=== PATIENT | female | born 1985 | race Two or more races ===

== ENCOUNTER 2019-07-27 23:57 | Emergency (ER) | payer MEDICAID ==
[~2019-07-27] VITALS: Ht 162.6 cm; Wt 48.5 kg
[2019-07-28 00:05] VITALS: BP 143/93
[2019-07-28] MEDS ORDERED: LORAZEPAM INJ 2 MG/ML VIAL ONE (00:11)
[2019-07-28] MEDS ORDERED: LORAZEPAM INJ 2 MG/ML VIAL IM ONE (00:30)
--- NOTE | 2019-07-28 00:53 | NUR ---
Patient discharged to home in stable condition. Written and verbal after care instructions given. Patient verbalizes understanding of instruction.
== END 2019-07-28 01:07 | disposition home or self-care (01) ==
LOC: ER 07-28
DX: F41.9 Anxiety disorder, unspecified (principal)
CPT/HCPCS: 96372; 99283; J2060

== ENCOUNTER 2020-02-28 18:39 | Emergency (ER) | payer MEDICAID ==
[~2020-02-28] VITALS: Ht 144.8 cm; Wt 56.7 kg
--- NOTE | 2020-02-28 18:40 | NUR ---
PT BIB SELF C/O SOB STARTED 2 HRS AGO, PT IS AAOX4, NOT IN RESPIRATORY DISTRESS, V/S STABLE, KEPT RESTED AND COMFORTABLE, WILL CONTINUE TO MONITOR.
--- NOTE | 2020-02-28 18:50 | NUR ---
JOSHUA PROCTOR AT BEDSIDE FOR EVAL.
[2020-02-28] MEDS ORDERED: LORAZEPAM 1 MG TABLET ONE (18:54)
[2020-02-28] MEDS ORDERED: LORAZEPAM 1 MG TABLET PO ONE (19:00)
--- NOTE | 2020-02-28 19:02 | NUR ---
PIPELAYER AT BEDSIDE FOR XRAY.
--- NOTE | 2020-02-28 19:12 | NUR ---
COVID SWAB OBTAINED AND SENT TO LAB.
--- NOTE | 2020-02-28 19:50 | NUR ---
Patient discharged to home in stable condition. Written and verbal after care instructions given. Patient verbalizes understanding of instruction.
[2020-02-28 19:51] VITALS: BP 139/60
== END 2020-02-28 19:52 | disposition home or self-care (01) ==
LOC: ER 18:39
DX: B34.9 Viral infection, unspecified (principal); F41.9 Anxiety disorder, unspecified; R06.02 Shortness of breath; Z20.828 Contact with and (suspected) exposure to other viral communicable diseases; R03.0 Elevated blood-pressure reading, without diagnosis of hypertension
CPT/HCPCS: 71045; 99284; U0003

== ENCOUNTER 2020-08-09 16:29 | Emergency (ER) | payer MEDICAID ==
[~2020-08-09] VITALS: Ht 152.4 cm; Wt 52.6 kg
[2020-08-09 16:38] VITALS: BP 119/84
[2020-08-09] MEDS ORDERED: DEXAMETHASONE SOD PHOSPHATE 10 MG/ML VIAL ONE (16:58)
[2020-08-09] MEDS ORDERED: KETOROLAC TROMETHAMINE INJ 30 MG/ML VIAL ONE (16:58)
[2020-08-09] MEDS ORDERED: KETOROLAC TROMETHAMINE INJ 60 MG/2 ML VIAL IM ONE (17:00)
[2020-08-09] MEDS ORDERED: DEXAMETHASONE SOD PHOSPHATE 4 MG/ML VIAL IM ONE (17:00)
--- NOTE | 2020-08-09 17:12 | NUR ---
Patient a/ox4, ambulatory with steady gait. No distress noted. Patient discharged to home in stable condition. Written and verbal after care instructions given. Patient verbalizes understanding of instruction.
== END 2020-08-09 17:12 | disposition home or self-care (01) ==
LOC: ER 16:32
DX: J02.0 Streptococcal pharyngitis (principal); F41.9 Anxiety disorder, unspecified; R59.0 Localized enlarged lymph nodes
CPT/HCPCS: 96372 ×2; 99284; J1100; J1885

== ENCOUNTER 2021-05-12 16:54 | Emergency (ER) | payer MEDICAID ==
[~2021-05-12] VITALS: Ht 152.4 cm; Wt 51.7 kg
--- NOTE | 2021-05-12 17:10 | NUR ---
ANXIETY, PANIC ATTACK ONSET 2 HOURS AGO. PATIENT A/OX4, BREATHING EVEN AND UNLABORED, NOS OB NOTED. NEEDS ATTENDED.
[2021-05-12] MEDS ORDERED: LORAZEPAM 1 MG TABLET PO ONE (18:00)
[2021-05-12] MEDS ORDERED: LORAZEPAM 1 MG TABLET ONE (18:02)
[2021-05-12] MEDS ORDERED: ALPR0.5T PO ×2 (18:40→18:42)
--- NOTE | 2021-05-12 18:50 | NUR ---
PATIENT A/OX4, AMBULATORY WITH STEADY GAIT. BREATHING EVEN AND UNLABORED, NO SOB NOTED. Patient discharged to home in stable condition. Written and verbal after care instructions given. Patient verbalizes understanding of instruction.
[2021-05-12 18:51] VITALS: BP 110/50
== END 2021-05-12 18:52 | disposition home or self-care (01) ==
LOC: ER 16:54
DX: F41.9 Anxiety disorder, unspecified (principal); Z79.899 Other long term (current) drug therapy

== ENCOUNTER 2021-12-06 17:45 | Emergency (ER) | payer MEDICAID ==
[~2021-12-06] VITALS: Ht 152.4 cm; Wt 51.7 kg
[~2021-12-06 17:45] MED LIST: ALPR0.5T PO
--- NOTE | 2021-12-06 18:09 | NUR ---
DR HOFFMAN AT BEDSIDE
[2021-12-06] MEDS ORDERED: KETOROLAC TROMETHAMINE INJ 30 MG/ML VIAL ONE (18:17)
[2021-12-06] MEDS ORDERED: METOCLOPRAMIDE HCL 10 MG/2 ML VIAL ONE (18:17)
[2021-12-06] MEDS ORDERED: SUMATRIPTAN SUCCINATE 6 MG/0.5 ML VIAL SQ ONE ×2 (18:17→18:30)
[2021-12-06] MEDS ORDERED: KETOROLAC TROMETHAMINE INJ 30 MG/ML VIAL IV ONE (18:30)
[2021-12-06] MEDS ORDERED: METOCLOPRAMIDE HCL 10 MG/2 ML VIAL IV ONE (18:30)
[2021-12-06] MEDS ORDERED: IV NS 0.9% 1,000 ML BAG IV ONE (18:30)
--- NOTE | 2021-12-06 18:32 | NUR ---
SIGNED WAIVER FORM. LMP 12/04/21.
[2021-12-06] MEDS ORDERED: IBUP-1957 PO (19:14)
[2021-12-06] MEDS ORDERED: SUMA100T PO (19:14)
--- NOTE | 2021-12-06 19:15 | NUR ---
REPORT GIVEN TO WONG GAN FOR JOE
[2021-12-06 19:17] VITALS: BP 117/72
--- NOTE | 2021-12-06 19:17 | NUR ---
IV removed. Catheter intact and site benign. Pressure and 4x4 applied to site. No bleeding noted. Patient discharged to home in stable condition. Written and verbal after care instructions given. Patient verbalizes understanding of instruction.
== END 2021-12-06 19:18 | disposition home or self-care (01) ==
LOC: ER 17:47
DX: G43.909 Migraine, unspecified, not intractable, without status migrainosus (principal); F41.9 Anxiety disorder, unspecified; Z79.899 Other long term (current) drug therapy
CPT/HCPCS: 96361; 96372; 96374; 96375; 99284; J1885; J2765; J3030; J7030 ×2

== ENCOUNTER 2024-04-24 07:38 | Inpatient (IN) | payer MEDICAID ==
[~2024-04-24] VITALS: Ht 149.9 cm; Wt 55.3 kg
[~2024-04-24 07:38] MED LIST changes: +IBUP-1957 PO; +SUMA100T PO
[2024-04-24] MEDS ORDERED: ADENOSINE 6 MG/2 ML VIAL ONE (07:59)
[2024-04-24] MEDS: ADENOSINE 6 MG/2 ML VIAL IVP ONE (08:00)
[2024-04-24] MEDS: IV NS 0.9% 1,000 ML BAG IV ONE (08:23)
[2024-04-24 08:24] LABS: BASOPHILS # (AUTO) 0.1 K/uL (0.0-0.2); BASOPHILS % (AUTO) 0.8 % (0.0-2.0); EOSINOPHILS # (AUTO) 0.1 K/uL (0.0-0.7); EOSINOPHILS % (AUTO) 1.6 % (0.0-6.0); HEMATOCRIT 41 % (33-45); LYMPHOCYTES # (AUTO) 2.6 K/uL (0.8-4.8); LYMPHOCYTES % (AUTO) 38.5 % (20.0-44.0); MEAN CORPUSCULAR HEMOGLOBIN 29 PG (26.0-33.0); MEAN CORPUSCULAR HGB CONC 34 g/dl (31.0-36.0); MEAN CORPUSCULAR VOLUME 85 fL (82-100); MONOCYTES # (AUTO) 0.5 K/uL (0.1-1.30); NEUTROPHILS # (AUTO) 3.5 K/uL (1.8-8.9); NEUTROPHILS % (AUTO) 52.1 % (43.0-81.0); PLATELET COUNT (AUTO) 420 K/uL (150-450); RED BLOOD CELL COUNT(AUTO) 4.82 MIL/uL (4.0-5.2); RED CELL DISTRIBUTION WIDTH 15.1 % (11.5-15.0); WHITE BLOOD COUNT (AUTO) 6.7 K/uL (4.3-11.0)
[2024-04-24 09:20] LABS: MAGNESIUM 1.8 mg/dL (1.8-2.4); THYROID STIMULATING HORMONE 3.37 uIU/mL (0.358-3.74)
[2024-04-24 10:25] LABS: CALCIUM, SERUM 8.4 mg/dL (8.5-10.1); CARBON DIOXIDE 23 mmol/L (21-32); CHLORIDE 108 mmol/L (98-107); CREATININE 0.7 mg/dL (0.6-1.3); GLUCOSE 92 mg/dL (74-106); POTASSIUM 3.1 mmol/L (3.5-5.1); SODIUM SERUM 144 mmol/L (136-145); UREA NITROGEN, BLOOD 15 mg/dL (7-18)
[2024-04-24 10:42] LABS: ALANINE AMINOTRANSFERASE 28 U/L (12-78); ALBUMIN 2.8 g/dL (3.4-5.0); ALKALINE PHOSPHATASE 84 U/L (46-116); ASPARTATE AMINOTRANSFERASE 27 U/L (15-37); BILIRUBIN,DIRECT 0.2 mg/dL (0.0-0.2); BILIRUBIN,TOTAL 0.8 mg/dL (0.2-1.0); NT-PRO BNP 179 pg/mL (0-125); TOTAL PROTEIN, SERUM 6.8 g/dL (6.4-8.2)
[2024-04-24] MEDS ORDERED: POTASSIUM CL. PREMIX PERIPHER. 200 ML ONE (11:13)
[2024-04-24] MEDS: POTASSIUM CL. PREMIX PERIPHER. 50 ML IV SCH (11:14)
[2024-04-24] MEDS ORDERED: ASPIRIN 325 MG TABLET ONE (12:38)
[2024-04-24] MEDS: ASPIRIN 325 MG TABLET PO ONE (12:40)
[2024-04-24 16:00] VITALS: BP 120/90; TEMP 98.1; O2SAT 99
[2024-04-24] MEDS ORDERED: ZOLPIDEM TARTRATE 5 MG TABLET PO PRN (17:30)
[2024-04-24] MEDS ORDERED: MAGNESIUM HYDROXIDE 30 ML UDC PO PRN (17:30)
[2024-04-24] MEDS ORDERED: ONDANSETRON HCL/PF 4 MG/2 ML VIAL IVP PRN (17:30)
[2024-04-24 20:00] VITALS: BP 129/90; TEMP 98.1; O2SAT 100
[2024-04-24] MEDS: ACETAMINOPHEN 325 MG TABLET PO PRN (22:56)
[2024-04-25] VITALS (7 sets, daily range): BP systolic 115–130; BP diastolic 78–89; TEMP 97.7–98.2; O2SAT 100
[2024-04-25 07:07] LABS: BASOPHILS % (AUTO) 0.7 % (0.0-2.0); EOSINOPHILS # (AUTO) 0.1 K/uL (0.0-0.7); EOSINOPHILS % (AUTO) 1.2 % (0.0-6.0); HEMATOCRIT 36 % (33-45); HEMOGLOBIN 12.2 g/dL (11.5-14.8); LYMPHOCYTES # (AUTO) 1.7 K/uL (0.8-4.8); LYMPHOCYTES % (AUTO) 32.2 % (20.0-44.0); MEAN CORPUSCULAR HEMOGLOBIN 29 PG (26.0-33.0); MEAN CORPUSCULAR HGB CONC 34 g/dl (31.0-36.0); MEAN CORPUSCULAR VOLUME 86 fL (82-100); MONOCYTES # (AUTO) 0.3 K/uL (0.1-1.30); MONOCYTES % (AUTO) 6.6 % (2.0-12.0); NEUTROPHILS % (AUTO) 59.3 % (43.0-81.0); PLATELET COUNT (AUTO) 405 K/uL (150-450); RED BLOOD CELL COUNT(AUTO) 4.19 MIL/uL (4.0-5.2); RED CELL DISTRIBUTION WIDTH 15.1 % (11.5-15.0); WHITE BLOOD COUNT (AUTO) 5.1 K/uL (4.3-11.0)
[2024-04-25 07:24] LABS: THYROID STIMULATING HORMONE 3.23 uIU/mL (0.358-3.74)
[2024-04-25 07:30] LABS: CALCIUM, SERUM 8.1 mg/dL (8.5-10.1); CREATININE 0.6 mg/dL (0.6-1.3); MAGNESIUM 1.7 mg/dL (1.8-2.4); PHOSPHORUS 2.6 mg/dL (2.5-4.9); POTASSIUM 3.2 mmol/L (3.5-5.1)
[2024-04-25] MEDS: PANTOPRAZOLE 40 MG TABLET.DR PO SCH (07:33)
[2024-04-25] MEDS: MAGNESIUM OXIDE 400 MG TABLET PO ONE (10:07)
[2024-04-25] MEDS: POTASSIUM CHLORIDE 20 MEQ TAB.PRT.SR PO SCH (10:07)
[2024-04-25] MEDS ORDERED: METO25TA6 PO (20:05)
[2024-04-25] MEDS ORDERED: METOPROLOL TARTRATE 25 MG TABLET PO ONE (20:30)
== END 2024-04-25 20:27 | disposition home or self-care (01) | DRG 201 ==
LOC: ER 07:51 → TELE1 15:06
PROVIDERS: ADMIT Nurse Practitioner Family; ATTEND Nurse Practitioner Family
DX: I47.10 Supraventricular tachycardia, unspecified (principal); I21.A1 Myocardial infarction type 2; E44.0 Moderate protein-calorie malnutrition; E88.09 Other disorders of plasma-protein metabolism, not elsewhere classified; F41.9 Anxiety disorder, unspecified; E87.6 Hypokalemia
CPT/HCPCS: 36415; 71045-TC; 80048-TC; 80061-TC; 80076-TC; 83735-TC; 83880; 84100-TC; 84443-TC; 84484-TC; 84702-TC; 85025-TC; 93307-TC; G0378; J0153; J3480